=== PATIENT | female | born 1970 | race Caucasian/White ===

== ENCOUNTER 2019-01-11 18:16 | Emergency (ER) | payer BC ==
[2019-01-11] MEDS ORDERED: ONDANSETRON HCL IV 4 MG/2 ML VIAL IVP ONE (18:28)
[2019-01-11] MEDS ORDERED: HYDROMORPHONE HCL 2 MG/ML VIAL IVP ONE (18:28)
[2019-01-11] MEDS ORDERED: CLINDAMYCIN 600MG/50ML PREMIX 600 MG/50 ML BAG IVPB ONE (18:29)
[2019-01-11] MEDS ORDERED: 0.9 % SODIUM CHLORIDE 1000ML 1,000 ML IV SCH (18:30)
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
[2019-01-11 18:47] LABS: BASO % 0.2 % (0-6); EOS % 1.9 % (0-6); HEMATOCRIT 37.1 % (35.0-47.0); LYMPH % 21.6 % (16-45); MEAN CELL VOLUME 95.4 fl (81-97); MEAN CORPUSCULAR HEMOGLOBIN 30.8 pg (27-33); MEAN CORPUSCULAR HGB CONC 32.3 g/dl (32-36); MEAN PLATELET VOLUME 10.9 fl (7.4-10.4); MONO % 9.3 % (0-9); PLATELET COUNT 246 K/uL (130-400); RED BLOOD COUNT 3.89 M/uL (3.80-5.40); RED CELL DISTRIBUTION WIDTH 14.4 % (11.5-14.5); WHITE BLOOD COUNT W/O DIFF 5.3 K/uL (4.2-12.2)
[2019-01-11 19:00] LABS: BLOOD UREA NITROGEN 8 mg/dL (6-20); CREATININE 0.7 mg/dL (0.5-0.9); EST GLOMERULAR FILTRATION RATE > 60 mL/min; TOTAL PROTEIN 5.7 g/dL (6.6-8.7)
[2019-01-11 19:02] LABS: GLUCOSE,RANDOM 112 mg/dL (74-109)
[2019-01-11 19:05] LABS: ALB/GLOB RATIO 1.4 (1.1-1.8); ALBUMIN 3.3 g/dL (4.0-5.0); ALKALINE PHOSPHATASE 68 U/L (35-104); ALT/SGPT 22 U/L (<33); AST/SGOT 24 U/L (10.0-35.0)
== END 2019-01-11 19:40 | disposition short-term general hospital (02) ==
LOC: ER 18:16
DX: S71.131D Puncture wound without foreign body, right thigh, subsequent encounter (principal); M79.651 Pain in right thigh; R22.41 Localized swelling, mass and lump, right lower limb; W34.00XD Accidental discharge from unspecified firearms or gun, subsequent encounter; F17.210 Nicotine dependence, cigarettes, uncomplicated
CPT/HCPCS: 80053; 85025; 96365; 96375; 99285; J2405